=== PATIENT | male | born 1985 | race African-American/Black ===

== ENCOUNTER 2018-01-16 18:19 | Emergency (ER) | payer OTHER ==
--- NOTE | 2018-01-16 18:30 | PDOC ---
Rapid Medical Evaluation Time Seen by Provider: 01/16/18 18:28 Medical Evaluation: Allergies Allergy/AdvReac Type Severity Reaction Status Date / Time No Known Allergies Allergy Verified 08/20/12 06:34 I have performed a brief in-person evaluation of this patient. The patient presents with a chief complaint of: pushing a 700lb bag of coffee at work and strained right middle back. Pertinent physical exam findings: pain with deep inspiration. pain with twisting torso side to side. Pain in right lat dorsi muscle I have ordered the following: nothing The patient will proceed to the ED for further evaluation. Discharge Disposition - Diagnosis Strain of latissimus dorsi muscle Qualifiers: Encounter type: initial encounter Qualified Code(s): S29.012A - Strain of muscle and tendon of back wall of thorax, initial encounter - Referrals - Patient Instructions - Post Discharge Activity
[2018-01-16 18:33] VITALS: BP 142/87; PULSE 70; TEMP 98; BMI 25.7
[2018-01-16] MEDS ORDERED: KETOROLAC TROMETHAMINE 60 MG/2 ML VIAL IM ONE (19:24)
--- NOTE | 2018-01-16 19:24 | PDOC ---
History of Present Illness - General History Source: Patient Exam Limitations: No Limitations - History of Present Illness Initial Comments: 01/16/18 19:44 The patient is a 32 year old male with no significant PMH of who presents to the emergency department with right sided back pain since earlier today. The patient reports that he hurt his back prior to experiencing his right sided back pain at his job earlier today. 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 The patient reports that he was in the process of moving a bag of coffee with other coworkers when he twisted his back the wrong way. The patient denies any numbness, weakness, or tingling sensations. The patient denies any chest pain, shortness of breath, headache and dizziness. The patient denies any fever, chills, nausea, vomiting, diarrhea or constipation. The patient denies any urinary symptoms. The patient denies any other complaints. <Jesenia James - Last Filed: 01/16/18 19:44> <Samia Lopez - Last Filed: 01/16/18 23:16> - General Chief Complaint: Injury Stated Complaint: BACK PAIN Time Seen by Provider: 01/16/18 18:28 Past History <Jesenia James - Last Filed: 01/16/18 19:44> - Past Medical History Cardiac Disorders: Yes (heart murmur since ) COPD: No - Surgical History Abdominal Surgery: Yes (HERNIA) - Immunization History Td Vaccination: No - Suicide/Smoking/Psychosocial Hx Smoking Status: Yes Smoking History: Current every day smoker Have you smoked in the past 12 months: No Number of Cigarettes Smoked Daily: 10 Information on smoking cessation initiated: Yes 'Breaking Loose' booklet given: 01/16/18 Hx Alcohol Use: No Drug/Substance Use Hx: No Substance Use Type: None <Samia Lopez - Last Filed: 01/16/18 23:16> - Past Medical History Allergies/Adverse Reactions: Allergies Allergy/AdvReac Type Severity Reaction Status Date / Time No Known Allergies Allergy Verified 01/16/18 18:28 Home Medications: Ambulatory Orders No Home Medications 0 dose .ROUTE UTDICT 08/20/12 Cyclobenzaprine HCl [Flexeril -] 10 mg PO HS #10 tablet 01/16/18 Ibuprofen 800 mg PO TID #30 tablet 01/16/18 Review of Systems - Review of Systems Able to Perform ROS?: Yes Comments:: 01/16/18 19:45 General: No fevers or chills, no weakness, no weight loss HEENT: No change in vision. No sore throat,. No ear pain CardioVascular: No chest pain or shortness of breath Respiratory:No cough, or wheezing. Gastrointestinal: no nausea, vomiting, diarrhea or constipation, No rectal bleeding Genitourinary: No dysuria, hematuria, or frequency Musculoskeletal: (+) right sided back pain . Neurologic: No headache, vertigo, dizziness or loss of consciousness Psychiatric: nor depression Skin: No rashes or easy bruising Endocrine: no increased thirst or abnormal weight change Allergic: no skin or latex allergy All other systems reviewed and normal <Jesenia James - Last Filed: 01/16/18 19:44> *Physical Exam - Vital Signs Last Vital Signs Temp Pulse Resp BP Pulse Ox 98.0 F 70 18 142/87 100 01/16/18 18:30 01/16/18 18:30 01/16/18 18:30 01/16/18 18:30 01/16/18 18:30 - Physical Exam Comments: 01/16/18 19:45 General: Well-nourished well-developed individual, no acute distress HEENT: Throat: Normal, tonsils normal, no erythema or exudate Neck: Supple, no meningeal signs, no lymphadenopathy Eyes::Pupils equal reactive and round, extraocular motion intact Chest: Nontender to palpation Cardiac: S1-S2 normal, regular rate and rhythm, no murmurs rubs or gallops Respiratory: Lungs clear to auscultation bilateral Abdomen: Soft, nondistended, normal bowel sounds, nontender to palpation diffusely Extremities: (+) right sided back pain with pain on palpation of right Lat muscle. Limited ROM due to pain with rotation to right. Warm, dry, no cyanosis, clubbing, or edema Skin: No rashes Neuro: Alert and oriented x3, nonfocal exam, grossly intact, normal gait Psych: Normal mood and affect <Jesenia James - Last Filed: 01/16/18 19:44> - Vital Signs Last Vital Signs Temp Pulse Resp BP Pulse Ox 98.0 F 70 18 142/87 100 01/16/18 18:30 01/16/18 18:30 01/16/18 18:30 01/16/18 18:30 01/16/18 18:30 <Samia Lopez - Last Filed: 01/16/18 23:16> ED Treatment Course - Medications Given in the ED: ED Medications Discontinued Medications Generic Name Dose Route Start Last Admin Trade Name Freddy PRN Reason Stop Dose Admin Ketorolac Tromethamine 60 mg 01/16/18 19:24 01/16/18 19:37 Toradol Injection - IM 01/16/18 19:25 60 mg ONCE ONE Administration <Jesenia James - Last Filed: 01/16/18 19:44> Medical Decision Making - Medical Decision Making 01/16/18 19:15 A portion of this note was documented by scribe services under my direction. I have reviewed the details of the note, within reason, and agree with the documentation with the following case summary and management plan written by me. Patient is a 32-year-old male with no past medical history presenting here department today complaining of right upper back pain after trying to move a heavy coffee back at work. Patient is neurologically intact with no focal findings. Tenderness to palpation of the right latissimus dorsi. Limited ROM with rotation d/t pain. Most likely a muscular strain at this time. We'll treat with Toradol and Flexeril. Return precautions given. Patient stands all discharge instructions and all questions were answered. <Samia Lopez - Last Filed: 01/16/18 23:16> *DC/Admit/Observation/Transfer - Attestations Scribe Attestion: 01/16/18 19:45 Documentation prepared by Jesenia James, acting as medical science liaison for Rodney Zapata MD. <Jesenia aJmes - Last Filed: 01/16/18 19:44> - Discharge Dispostion Admit: No <Samia Lopez - Last Filed: 01/16/18 23:16> Diagnosis at time of Disposition: Strain of latissimus dorsi muscle Qualifiers: Encounter type: initial encounter Qualified Code(s): S29.012A - Strain of muscle and tendon of back wall of thorax, initial encounter - Discharge Dispostion Disposition: HOME Condition at time of disposition: Stable - Prescriptions Prescriptions: Cyclobenzaprine HCl [Flexeril -] 10 mg PO HS #10 tablet Ibuprofen 800 mg PO TID #30 tablet - Referrals Referrals: Alex Gonzalez MD [Staff Physician] - Luís Barbosa MD [Staff Physician] - - Patient Instructions Printed Discharge Instructions: DI for Muscle Strain Additional Instructions: You have upper back pain due to a muscle spasm. Please take ibuprofen 800 mg 3 times a day not to exceed 3000 mg a day. You were also prescribed Flexeril. Please take the medication before you go to bed. Do not drive after taking this medication as it may make you sleepy. You may use warm compresses on your back to help with her symptoms. Please follow-up with your primary care doctor. If your symptoms do not resolve in 3-5 days, follow-up with orthopedics. A referral has been provided for you. Return to the emergency department if you have worsening back pain, bladder or bowel incontinence, numbness and tingling in her legs, changes in the way you walk, or any new or worsening symptoms. - Post Discharge Activity Forms/Work/School Notes: Back to Work
[2018-01-16] MEDS ORDERED: KETOROLAC TROMETHAMINE 60 MG/2 ML VIAL ONE (19:33)
== END 2018-01-16 19:49 | disposition home or self-care (01) ==
LOC: JERFT 18:19
PROC: 3E0233Z Introduction of Anti-inflammatory into Muscle, Percutaneous Approach (ICD-10-PCS; principal; 2018-01-16)
DX: S29.012A Strain of muscle and tendon of back wall of thorax, initial encounter (principal); X50.9XXA Other and unspecified overexertion or strenuous movements or postures, initial encounter; Y93.89 Activity, other specified; Y92.63 Factory as the place of occurrence of the external cause; Y99.0 Civilian activity done for income or pay
CPT/HCPCS: 99281-25

== ENCOUNTER 2018-12-12 16:14 | Emergency (ER) | payer BC ==
[2018-12-12 16:31] VITALS: BP 144/93; PULSE 92; TEMP 101.2; BMI 23.7
[2018-12-12] MEDS ORDERED: ACETAMINOPHEN 500 MG TABLET (FP) PO ONE (17:34)
[2018-12-12] MEDS ORDERED: ACETAMINOPHEN 325 MG TABLET (FP) ONE (17:38)
--- NOTE | 2018-12-12 17:39 | PDOC ---
History of Present Illness - General Chief Complaint: Cold Symptoms Stated Complaint: FLU SYMPTOMS Time Seen by Provider: 12/12/18 17:17 History Source: Patient Exam Limitations: No Limitations - History of Present Illness Initial Comments: 12/12/18 17:35 HISTORY OF PRESENT ILLNESS: 33-year-old male denies medical history presents emergency Department with 1 day of fevers, body aches, pleuritic chest pain, moist cough and headache. 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 Patient reports he averages approximately 4-5 hours sleep daily. Patient was concerned as he has had decreased energy and does not want to get out of bed. Patient is unsure of any sick contacts there is worsening theater is likely been exposed to many infectious diseases. No recent travel or sick contacts. PAST MEDICAL HISTORY: Denies past medical history SURGICAL HISTORY: Denies ALLERGIES: No known drug allergies REVIEW OF SYSTEMS General/Constitutional: +fever. Denies weakness, weight change. HEENT: Denies change in vision. Denies ear pain or discharge. +sore throat. Cardiovascular: Pleuritic chest pain. Denies shortness of breath. Respiratory: Moist productive cough. Denies wheezing, or hemoptysis. Gastrointestinal: Denies nausea, vomiting, diarrhea or constipation. Denies rectal bleeding. Genitourinary: Denies dysuria, frequency, or change in urination. Musculoskeletal: +myalgias. Denies neck or back pain. Skin and breasts: Denies rash or easy bruising. Neurologic: Denies headache, vertigo, loss of consciousness, or loss of sensation. Psychiatric: Denies depression or anxiety. Endocrine: Denies increased thirst. Denies abnormal weight change. Hematologic/Lymphatic: Denies anemia, easy bleeding, or history of blood clots. Allergic/Immunologic: Denies hives or skin allergy. Denies latex allergy. PHYSICAL EXAM General Appearance: Well-appearing, appropriately dressed. No apparent distress , no intoxication. HEENT: EOMI, PERRLA, normal voice, TMs retracted bilaterally. No conjunctival pallor. No photophobia, scleral icterus. Oropharynx erythematous without lesions or exudate. Cobblestoning noted in the posterior. No nasal discharge present. Neck: Supple. Trachea midline. No tenderness, rigidity, carotid bruit, stridor , or thyromegaly. Nontender anterior cervical lymphadenopathy present. Respiratory/Chest: Lungs CTAB. No shortness of breath, chest tenderness, respiratory distress, accessory muscle use. No crackles, rales, rhonchi, stridor , wheezing, dullness Cardiovascular: RRR. S1, S2. No JVD, murmur, bradycardia, tachycardia. Vascular Pulses: Dorsalis-Pedis (R): 2+, Dorsalis-Pedis (L): 2+ Gastrointestinal/Abdominal: Normal bowel sounds. Abdomen soft, non-distended. No tenderness or rebound tenderness. No organomegaly, pulsatile mass, guarding, hernia, hepatomegaly, splenomegaly. Musculoskeletal/Extremities: Normal inspection. FROM of all extremities, normal capillary refill. Pelvis Stable. No CVA tenderness. No tenderness to extremities, pedal edema, swelling, erythema or deformity. Integumentary: Appropriate color, dry, warm. 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 Fully oriented, alert. Appropriate mood/affect. Motor strength 5/5. No appreciable EOM palsy, facial droop or sensory deficit. Past History - Past Medical History Allergies/Adverse Reactions: Allergies Allergy/AdvReac Type Severity Reaction Status Date / Time No Known Allergies Allergy Verified 12/12/18 16:26 Home Medications: Ambulatory Orders No Home Medications 0 dose .ROUTE UTDICT 08/20/12 Cyclobenzaprine HCl [Flexeril -] 10 mg PO HS #10 tablet 01/16/18 Ibuprofen 800 mg PO TID #30 tablet 01/16/18 Cardiac Disorders: Yes (heart murmur since ) COPD: No - Surgical History Abdominal Surgery: Yes (HERNIA) - Immunization History Td Vaccination: No - Suicide/Smoking/Psychosocial Hx Smoking Status: Yes Smoking History: Current every day smoker Have you smoked in the past 12 months: Yes Number of Cigarettes Smoked Daily: 5 Information on smoking cessation initiated: No 'Breaking Loose' booklet given: 01/16/18 Hx Alcohol Use: No Drug/Substance Use Hx: No Substance Use Type: None *Physical Exam - Vital Signs Last Vital Signs Temp Pulse Resp BP Pulse Ox 101.2 F H 92 H 22 H 144/93 99 12/12/18 16:26 12/12/18 16:12/12/18 16:12/12/18 16:12/12/18 16:26 ED Treatment Course - RADIOLOGY Radiology Studies Ordered: Category Date Time Status CHEST PA & LAT [RAD] Stat Radiology 12/12/18 17:33 Ordered Medical Decision Making - Medical Decision Making 12/12/18 17:38 A/P: 33-year-old male with 1 day of viral illness symptoms Differential diagnosis includes but not limited to: Streptococcal pharyngitis, influenza, viral infection, pneumonia Chest x-ray Influenza testing Rapid strep testing EKG Tylenol 975 mg orally now Reassess 12/12/18 19:04 Chest x-rays read by Dr. Hathaway: No acute chest pathology. Influenza testing and rapid strep testing are both negative. Repeat temperature is 98.9. I will discharge the patient home with supportive treatment for nasopharyngitis. I discussed the physical exam findings, ancillary test results and final diagnoses with the patient. I answered all of the patient's questions. The patient was satisfied with the care received and felt comfortable with the discharge plan and treatment plan. The patient will call their primary care physician within 24 hours to arrange follow-up and will return to the Emergency Department with any new, persistent or worsening symptoms. 12/12/18 19:08 *DC/Admit/Observation/Transfer Diagnosis at time of Disposition: Nasopharyngitis acute - Discharge Dispostion Disposition: HOME Condition at time of disposition: Fair Decision to Admit order: No - Referrals - Patient Instructions Additional Instructions: Rest, drink lots of fluids: Teas, water, soups, Pedialyte Saltwater gargles Steamy showers/seem to face break up mucus Avoid contact with others until fevers and cough resolved Lots of handwashing and good hygiene Continue [id number] medications for symptomatic relief Tylenol or Motrin for fever and pain Followup with private physician in one to 2 days as needed Return to emergency department for worsened symptoms, fevers, dehydration - Post Discharge Activity Forms/Work/School Notes: Back to Work
--- NOTE | 2018-12-13 09:36 | EKG ---
Test Reason : Blood Pressure : / mmHG Vent. Rate : 081 BPM Atrial Rate : 081 BPM P-R Int : 166 ms QRS Dur : 090 ms QT Int : 346 ms P-R-T Axes : 063 056 030 degrees QTc Int : 401 ms NORMAL SINUS RHYTHM POSSIBLE LEFT ATRIAL ENLARGEMENT LEFT VENTRICULAR HYPERTROPHY ABNORMAL ECG NO PREVIOUS ECGS AVAILABLE Confirmed by JOSH SR, ANH ([id number]) on 12/13/2018 9:35:56 AM Referred By: Confirmed By:ANH MORENO MD
== END 2018-12-12 20:10 | disposition home or self-care (01) ==
LOC: JER 16:14
DX: J00 Acute nasopharyngitis [common cold] (principal)
CPT/HCPCS: 71046-TC-FY; 87070; 87804; 87880; 93005; 93010; 99282-25